=== PATIENT | male | born 1945 | race Caucasian/White ===

== ENCOUNTER 2018-02-13 10:59 | Observation (INO) | payer MEDICARE ==
--- NOTE | 2018-02-13 13:00 | PCM.HP.ADD ---
Addendum to History & Physical - History & Physical Addendum Addendum to History & Physical: This certifies that the History & Physical in the electronic chart reflects the current health status of the patient. If there are changes in the H&P these changes/exceptions are listed as follows.
[2018-02-13 13:12] LABS: BASOPHIL % 0.3 % (0.0-0.4); Basophil (Absolute #) 0.03 (0-0.4); Eosinophil % 1.8 % (0.00-5.0); Eosinophil (Absolute #) 0.16 (0-0.5); Granulocyte Absolute (ANC) 6.95 (1.4-6.9); Granulocytes % 78.3 % (36.0-66.0); Hematocrit 45.2 % (42-50); Hemoglobin 15.6 gm/dl (12.5-18.0); Mean Cell Volume 91.1 fl (78-100); Mean Corpuscular Hemoglobin 31.5 pg (26-32); Mean Corpuscular Hgb Concent. 34.5 g/dl (32-36); Mean Platelet Volume 9.5 fl (6-9.5); Monocyte (Absolute #) 0.94 (0.0-1.3); Monocytes % 10.6 % (0.0-12.0); Platelet Count 177 K/mm3 (150-450); Red Blood Count 4.96 M/mm3 (4.1-5.6); White Blood Count 8.9 K/mm3 (4.0-10.5)
[2018-02-13 13:32] LABS: ALBUMIN 4.4 g/dL (3.5-5.0); ALKALINE PHOSPHATASE 71 U/L (38-126); ANION GAP 15.3 MEQ/L (5-15); BLOOD UREA NITROGEN 14 mg/dL (9-20); CHLORIDE 101 mmol/L (98-107); Calcium 9.6 mg/dL (8.4-10.2); Carbon Dioxide 29 mmol/L (22-30); Creatinine 1 0.68 mg/dL (0.66-1.25); Glucose 230 mg/dL (74-106); Potassium 4.1 mmol/L (3.5-5.1); SGOT/AST 19 U/L (17-59); SGPT/ALT 11 U/L (0-50); SODIUM 140 mmol/L (137-145)
--- NOTE | 2018-02-13 13:43 | XRAY ---
Indication: Cough. Pneumonia. Comparison: May 19, 2015. PA/lateral chest hyperinflated again with azygous lobe, left base pleural thickening/scarring, and a few calcified granulomas. Heart is not enlarged with interval CABG surgery. Bony thorax intact again with mild osteopenia and degenerative changes. Impression: Nonacute hyperinflated chest with chronic features.
[2018-02-13] MEDS: ROCEPHIN 1 Gm-D5w 50 ml Bag** 1 G/50 ML IVPB IV SCH (14:30)
[2018-02-13] MEDS: Zithromax 500 MG/ 250 ML NaCl Premix 500 MG/250 ML IVPB IV SCH (15:12)
[2018-02-13] MEDS ORDERED: PROVENTIL 2.5 MG/3 ML NEB IH PRN (15:48)
[2018-02-13] MEDS ORDERED: Nitrostat 0.4 MG Tablet SL PRN (16:13)
[2018-02-13] MEDS ORDERED: Ventolin Hfa MDI IH PRN (16:13)
[2018-02-13] MEDS ORDERED: Glucotrol 10 MG PO SCH (16:30)
[2018-02-13] MEDS ORDERED: ECOTRIN 81 MG PO SCH (16:30)
[2018-02-13] MEDS ORDERED: PROVENTIL COMMON CANISTER IH PRN (16:42)
[2018-02-13] MEDS ORDERED: MEDICATION INTERVENTION MC SCH (17:00)
[2018-02-13] MEDS ORDERED: MEDICATION INTERVENTION PO SCH (17:00)
[2018-02-13] MEDS ORDERED: Glucophage XR 500 MG PO SCH (17:00)
[2018-02-13] MEDS: ECOTRIN 81 MG PO SCH (17:33)
[2018-02-13] MEDS: ceLEXa 20 MG PO SCH (17:33)
[2018-02-13] MEDS: VITA-BEE WITH C PO SCH (17:34)
[2018-02-13] MEDS: Zestril 5 MG PO SCH (17:34)
[2018-02-13] MEDS: ZOCOR 20MG PO SCH (17:34)
[2018-02-13] MEDS: Lopressor 25MG Tab PO SCH (21:41)
[2018-02-13] MEDS ORDERED: INSULIN DEGLUDEC 20 UNIT SQ SCH (22:00)
[2018-02-13] MEDS ORDERED: Lantus Insulin SQ SCH (22:00)
[2018-02-13] MEDS ORDERED: Lopressor 25MG Tab PO SCH (22:00)
[2018-02-14] MEDS ORDERED: TYLENOL 325 MG PO PRN (00:11)
[2018-02-14] MEDS ORDERED: Glucotrol 5 MG PO SCH (07:30)
[2018-02-14] MEDS ORDERED: Glucotrol 10 MG PO SCH ×2 (07:30→10:00)
[2018-02-14 08:27] VITALS: O2SAT 96
--- NOTE | 2018-02-14 09:27 | PCM.DS ---
Discharge Summary Date of Admission: 02/13/18 11:15 Admitting Physician: MARIBEL YODER Primary Care Provider: MARIBEL YODER Allergies Allergies No Known Drug Allergies Allergy (Verified 02/13/18 11:36) Hospital Summary - Hospital Course Hospital Course: Chief Complaint Diagnosis Pneumonia Allergies Allergy/AdvReac Type Severity Reaction Status Date / Time No Known Drug Allergies Allergy Verified 02/13/18 11:36 Vital Signs (Last 24 hours) Temp Pulse Resp BP Pulse Ox 02/14/18 08:26 96 02/14/18 08:00 98.8 F 69 20 147/68 91 L 02/14/18 04:00 99.6 F 79 18 134/61 92 L 02/14/18 00:00 101.4 F 93 H 18 126/60 90 L 02/13/18 23:31 90 24 91 L 02/13/18 21:42 92 H 24 93 L 02/13/18 19:51 99.7 F 88 28 H 155/74 94 L 02/13/18 16:00 18 02/13/18 15:54 98.3 F 90 18 143/63 94 L 02/13/18 15:41 90 18 94 L 02/13/18 11:38 99.6 F 98 H 16 136/67 95 Home Medications Medication Instructions Recorded Confirmed Last Taken Type Ascorbic Acid [Vitamin C] 50 mg PO DAILY 02/13/18 02/13/18 02/12/18 History Citalopram Hydrobromide 40 mg PO DAILY 02/13/18 02/13/18 02/12/18 History [Citalopram HBr] Dulaglutide [Trulicity] 0.75 mg SQ WEEKLY 02/13/18 02/13/18 02/11/18 History Glipizide 10 mg [Glucotrol 10 10 mg PO DAILY 02/13/18 02/13/18 02/12/18 History MG] Insulin Degludec [Tresiba 20 units SQ QHS 02/13/18 02/13/18 02/12/18 History Flextouch U-100] Lisinopril [Zestril] 5 mg PO DAILY 02/13/18 02/13/18 02/12/18 History Lovastatin 40 mg PO DAILY 02/13/18 02/13/18 02/12/18 History Metformin HCl Xr 500 mg 500 mg PO DAILY 02/13/18 02/13/18 02/12/18 History [Glucophage XR 500 MG] Metoprolol Tartrate 25 mg 25 mg PO BID 02/13/18 02/13/18 02/12/18 History [Lopressor 25MG Tab] Current Medications Generic Name Dose Route Start Last Admin Trade Name Freq PRN Reason Stop Dose Admin Acetaminophen 650 mg 02/14/18 00:11 02/14/18 00:14 Tylenol 325 Mg PO 03/16/18 00:10 650 mg Q4H PRN PRN Administration PAIN AND/OR FEVER Albuterol Sulfate 2.5 mg 02/13/18 15:48 02/13/18 23:31 Proventil 2.5 Mg/3 Ml Neb IH 03/15/18 15:47 2.5 mg Q4H PRN PRN Administration SHORTNESS OF BREATH/WHEEZING Albuterol Sulfate 2 puff 02/13/18 16:42 Proventil Common Canister IH 03/15/18 16:41 QID PRN PRN SHORTNESS OF BREATH Aspirin 81 mg 02/13/18 17:00 02/13/18 17:33 Ecotrin 81 Mg PO 03/15/18 16:59 81 mg DAILY TREVER Administration Citalopram Hydrobromide 40 mg 02/13/18 17:00 02/13/18 17:33 Celexa 20 Mg PO 03/15/18 16:59 40 mg DAILY TREVER Administration Glipizide 10 mg 02/14/18 07:30 02/14/18 07:41 Glucotrol 5 Mg PO 03/16/18 07:29 10 mg QDAC TREVER Administration Ceftriaxone Sodium/Dextrose 1 g in 50 mls @ 100 mls/hr 02/13/18 14:00 14:30 Rocephin 1 Gm-D5w 50 Ml Bag IV 03/15/18 13:59 100 mls/hr Q24H10 TREVER Administration Azithromycin 500 mg in 250 mls @ 250 mls/hr 02/13/18 14:00 02/13/18 15:12 Zithromax 500 Mg/ 250 Ml Nacl Premix IV 03/15/18 13:59 250 mls/hr DAILY TREVER Administration Insulin Glargine 20 unit 02/13/18 22:00 02/13/18 21:41 Lantus Insulin SQ 03/15/18 21:59 20 unit HS TREVER Administration Lisinopril 5 mg 02/13/18 17:00 02/13/18 17:34 Zestril 5 Mg PO 03/15/18 16:59 5 mg DAILY TREVER Administration Metformin HCl 500 mg 02/13/18 17:00 02/13/18 17:33 Glucophage Xr 500 Mg PO 03/15/18 16:59 500 mg DINNER TREVER Administration Metoprolol Tartrate 25 mg 02/13/18 22:00 02/13/18 21:41 Lopressor 25mg Tab PO 03/15/18 21:59 25 mg BID TREVER Administration Multivitamins 1 tab 02/13/18 17:00 02/13/18 17:34 Rosa Maria-Bee With C PO 03/15/18 16:59 1 tab DAILY TREVER Administration Nitroglycerin 0.4 mg 02/13/18 16:13 Nitrostat 0.4 Mg Tablet SL 03/15/18 16:12 UD PRN CHEST PAIN Simvastatin 20 mg 02/13/18 17:00 02/13/18 17:34 Zocor 20mg PO 03/15/18 16:59 20 mg DAILY TREVER Administration Intake & Output (Last 24 hours) 02/11/18 02/12/18 02/13/18 02/14/18 11:59 11:59 11:59 11:59 Intake Total 730 Output Total 1650 Balance -920 Weight 89.5 kg Microbiology Results (Last 24 hours) 02/13/18 13:20 Blood Blood Culture Gram Stain - Pending 02/13/18 13:20 Blood Blood Culture - Pending 02/13/18 13:06 Blood Blood Culture Gram Stain - Pending 02/13/18 13:06 Blood Blood Culture - Pending Laboratory Results (Last 24 hours) 02/13/18 02/13/18 02/13/18 13:06 13:06 12:57 WBC 8.9 RBC 4.96 Hgb 15.6 Hct 45.2 MCV 91.1 MCH 31.5 MCHC 34.5 RDW 12.0 Plt Count 177 MPV 9.5 Gran % 78.3 H Eos # (Auto) 0.16 Absolute Lymphs (auto) 0.80 L Absolute Monos (auto) 0.94 Lymphocytes % 9.0 L Monocytes % 10.6 Eosinophils % 1.8 Basophils % 0.3 Absolute Granulocytes 6.95 H Basophils # 0.03 Sodium 140 Potassium 4.1 Chloride 101 Carbon Dioxide 29 Anion Gap 15.3 H BUN 14 Creatinine 0.68 Estimated GFR > 60.0 Glucose 230 H Calcium 9.6 Total Bilirubin 0.80 AST 19 ALT 11 Alkaline Phosphatase 71 Troponin I < 0.012 Serum Total Protein 7.0 Albumin 4.4 Orders (Last 24 hours) Category Date Time Status Up Ad Jaquelin Activity 02/13/18 12:57 Active Up Ad Jaquelin TOLERATED Activity 02/13/18 12:57 Active ACCUCHECK [Accucheck] ACHS Care 02/13/18 20:16 Active IV Insertion ROUTINE Care 02/13/18 12:57 Completed Implement Pneumonia Pathway ROUTINE Care 02/13/18 12:[address] in Observation Care 02/13/18 12:57 Active 2000 Calorie ADA Diet 02/13/18 Dinner Active Nutritional Admission Screen Diet 02/13/18 13:08 Active CHEST 2 VIEWS (PA AND LAT) Stat Exams 02/13/18 12:57 Completed BLOOD CULTURE Stat Lab 02/13/18 13:20 Received CBC W DIFF Stat Lab 02/13/18 13:06 Completed CMP Routine Lab 02/13/18 12:57 Completed TROPONIN Stat Lab 02/13/18 13:06 Completed Acetaminophen 325 mg [Tylenol 325 mg] Med 02/14/18 00:11 Active 650 mg PO Q4H PRN PRN Albuterol 2.5 mg/3 ml Neb [Proventil 2.5 mg/3 ml Neb Med 02/13/18 15:48 Active ] 2.5 mg IH Q4H PRN PRN Albuterol Common Canister [Proventil Common Canister Med 02/13/18 16:42 Active ] 2 puff IH QID PRN PRN Aspirin EC 81 mg [Ecotrin 81 mg] Med 02/13/18 17:00 Active 81 mg PO DAILY Azithromycin 500 mg/250 ml [Zithromax 500 MG/ 250 ML Med 02/13/18 14:00 Active NaCl Premix] 500 mg in 250 ml IV DAILY Ceftriaxone 1 GM/50 ML PREMIX* [ROCEPHIN 1 Gm-D5w 50 ml Med 02/13/18 14:00 Active Bag] 1 g in 50 ml IV Q24H10 Citalopram Hydrobromide 20 mg* [ceLEXa 20 MG] Med 02/13/18 17:00 Active 40 mg PO DAILY Glipizide 5 mg [Glucotrol 5 MG] Med 02/14/18 07:30 Active 10 mg PO QDAC Insulin Glargine [Lantus Insulin] Med 02/13/18 22:00 Active 20 unit SQ HS Lisinopril 5 mg [Zestril 5 MG] Med 02/13/18 17:00 Active 5 mg PO DAILY Medication Intervention Med 02/13/18 17:00 Active 1 each MC .RN TO CHECK ON Medication Intervention Med 02/13/18 17:00 Active 1 each PO .RN TO CHECK ON Metformin HCl Xr 500 mg [Glucophage XR 500 MG] Med 02/13/18 17:00 Active 500 mg PO DINNER Metoprolol Tartrate 25 mg [Lopressor 25MG Tab] Med 02/13/18 22:00 Active 25 mg PO BID Nitroglycerin 0.4 mg Tablet [Nitrostat 0.4 MG Tablet Med 02/13/18 16:13 Active ] 0.4 mg SL UD PRN Simvastatin 20Mg [Zocor 20Mg] Med 02/13/18 17:00 Active 20 mg PO DAILY Vitamin B Comp W-C [Rosa Maria-Bee with C] Med 02/13/18 17:00 Active 1 tab PO DAILY EKG ROUTINE RT 02/13/18 12:57 Completed RT Screen per Nursing Assess ONCE RT 02/13/18 13:08 Completed Respiratory Nebulizer UD RT 02/13/18 15:49 Active Respiratory Therapy Consult ROUTINE RT 02/13/18 12:57 Completed Patient Care Notes (Last 24 hours) 02/13/18 23:29 Nursing Note by Philomena Mondragon Patient c/o short of breath. O2 sat 94% RT Bijan made aware and assessing patient. Initialized on 02/13/18 23:29 - END OF NOTE - Vitals & Intake/Output Vital Signs: Vital Signs Temperature 98.8 F 02/14/18 08:00 Pulse Rate 69 02/14/18 08:00 Respiratory Rate 20 02/14/18 08:00 Blood Pressure 147/68 02/14/18 08:00 O2 Sat by Pulse Oximetry 96 02/14/18 08:26 Oxygen-Last Documented O2 Percentage 2 Liters = 28% Intake & Output: Intake & Output 02/11/18 02/12/18 02/13/18 02/14/18 11:59 11:59 11:59 11:59 Intake Total 730 Output Total 1650 Balance -920 Weight 89.5 kg - Lab Result Diagrams: 02/13/18 13:06 02/13/18 12:57 Lab Results-Last 24 Hrs: Accuchecks Date 02/13/18 Accucheck Value: 216 Accucheck Value: 225 Lab Results-Last 24 Hours 02/13/18 02/13/18 02/13/18 Range/Units 12:57 13:06 13:06 WBC 8.9 (4.0-10.5) K/mm3 RBC 4.96 (4.1-5.6) M/mm3 Hgb 15.6 (12.5-18.0) gm/dl Hct 45.2 (42-50) % MCV 91.1 (78-100) fl MCH 31.5 (26-32) pg MCHC 34.5 (32-36) g/dl RDW 12.0 (11.5-14.0) % Plt Count 177 (150-450) K/mm3 MPV 9.5 (6-9.5) fl Gran % 78.3 H (36.0-66.0) % Eos # (Auto) 0.16 (0-0.5) Absolute Lymphs (auto) 0.80 L (1.0-4.6) Absolute Monos (auto) 0.94 (0.0-1.3) Lymphocytes % 9.0 L (24.0-44.0) % Monocytes % 10.6 (0.0-12.0) % Eosinophils % 1.8 (0.00-5.0) % Basophils % 0.3 (0.0-0.4) % Absolute Granulocytes 6.95 H (1.4-6.9) Basophils # 0.03 (0-0.4) Sodium 140 (137-145) mmol/L Potassium 4.1 (3.5-5.1) mmol/L Chloride 101 (98-107) mmol/L Carbon Dioxide 29 (22-30) mmol/L Anion Gap 15.3 H (5-15) MEQ/L BUN 14 (9-20) mg/dL Creatinine 0.68 (0.66-1.25) mg/dL Estimated GFR > 60.0 ML/MIN Glucose 230 H (74-106) mg/dL Calcium 9.6 (8.4-10.2) mg/dL Total Bilirubin 0.80 (0.2-1.3) mg/dL AST 19 (17-59) U/L ALT 11 (0-50) U/L Alkaline Phosphatase 71 (38-126) U/L Troponin I < 0.012 (0.000-0.034) ng/mL Serum Total Protein 7.0 (6.3-8.2) g/dL Albumin 4.4 (3.5-5.0) g/dL Micro Results-Entire Visit: Accuchecks Date 02/13/18 Accucheck Value: 216 Accucheck Value: 225 - Radiology Exams Ordered Rad Exams-Entire Visit: Radiology Procedures Category Date Time Status CHEST 2 VIEWS (PA AND LAT) Stat Exams 02/13/18 12:57 Completed - Procedures and Test Procedures and Tests throughout Hospitalization: Therapy Orders & Screens 02/13/18 12:57 EKG ROUTINE Comment: Respiratory Therapy Consult ROUTINE Comment: Reason For Exam: Diagnosis: Pneumonia 02/13/18 13:08 RT Screen per Nursing Assess ONCE Comment: Protocol Order Physician Instructions: Greater than 3 points order RT Admission Screen Reason For Exam: Triggered on Admission Diagnosis: Pneumonia Diagnosis: Pneumonia Pneumonia: Yes Home O2: No Asthma: No CHF: No Home CPAP/BIPAP: No Home Nebs/MDI: Yes Total Points: 8 02/13/18 15:49 Respiratory Nebulizer UD Comment: Diagnosis: Pneumonia Discharge Exam General Appearance: no apparent distress, alert Neurologic Exam: alert, oriented x 3, cooperative, normal mood/affect, nml cerebellar function, sensation nml, No motor deficits Skin Exam: normal color, warm, dry Eye Exam: PERRL, EOMI, eyes nml inspection Ears, Nose, Throat Exam: normal ENT inspection, pharynx normal, moist mucous membranes Neck Exam: normal inspection, non-tender, supple, full range of motion Respiratory Exam: normal breath sounds, lungs clear, No respiratory distress Cardiovascular Exam: regular rate/rhythm, normal heart sounds Gastrointestinal/Abdomen Exam: soft, No tenderness, No mass Extremity Exam: normal inspection, normal range of motion Back Exam: normal inspection, normal range of motion, No CVA tenderness, No vertebral tenderness Male Genitalia Exam: deferred Rectal Exam: deferred Final Diagnosis/Problem List - Final Discharge Diagnosis/Problem (1) Bronchitis Current Visit: Yes Status: Acute (2) Type 2 diabetes mellitus Current Visit: Yes Status: Chronic - Discharge Discharge Date: 02/14/18 Disposition: Home, Self-Care Condition: Stable Prescriptions: New Cephalexin Mh 500 mg [Keflex 500 mg] 500 mg PO QID #30 capsule No Action Vitamin B Complex & Vit C No.3 [B Complex with Vitamin C] 1 each PO DAILY Aspirin 81 mg PO DAILY Albuterol Sulfate [Proair Hfa] 2 puffs IH QID PRN PRN Reason: Shortness Of Breath Nitroglycerin 0.4 mg Tablet [Nitrostat 0.4 MG Tablet] 0.4 mg SL UD PRN PRN Reason: Chest Pain Glipizide 10 mg [Glucotrol 10 MG] 10 mg PO DAILY Ascorbic Acid [Vitamin C] 50 mg PO DAILY Lovastatin 40 mg PO DAILY Citalopram Hydrobromide [Citalopram HBr] 40 mg PO DAILY Metoprolol Tartrate 25 mg [Lopressor 25MG Tab] 25 mg PO BID Lisinopril [Zestril] 5 mg PO DAILY Metformin HCl Xr 500 mg [Glucophage XR 500 MG] 500 mg PO DAILY Insulin Degludec [Tresiba Flextouch U-100] 20 units SQ QHS Dulaglutide [Trulicity] 0.75 mg SQ WEEKLY Follow up with: MARIBEL YODER MD [Primary Care Provider] - 1 Week
[2018-02-14] MEDS: ROCEPHIN 1 Gm-D5w 50 ml Bag** 1 G/50 ML IVPB IV SCH (09:32)
[2018-02-14] MEDS: Zithromax 500 MG/ 250 ML NaCl Premix 500 MG/250 ML IVPB IV SCH (09:32)
[2018-02-14] MEDS: Zestril 5 MG PO SCH (09:33)
[2018-02-14] MEDS: Lopressor 25MG Tab PO SCH (09:33)
[2018-02-14] MEDS: ECOTRIN 81 MG PO SCH (09:33)
[2018-02-14] MEDS: ceLEXa 20 MG PO SCH (09:33)
[2018-02-14] MEDS: VITA-BEE WITH C PO SCH (09:34)
[2018-02-14] MEDS: ZOCOR 20MG PO SCH (09:34)
[2018-02-14] MEDS ORDERED: NON-FORMULARY ITEM (Lovastatin [Lovastatin] 40 MG) PO SCH (10:00)
[2018-02-14] MEDS ORDERED: ASCORBIC ACID PO SCH (10:00)
[2018-02-14] MEDS ORDERED: VITAMIN C PO SCH (10:00)
[2018-02-14] MEDS ORDERED: Glucophage XR 500 MG PO SCH (10:00)
[2018-02-14] MEDS ORDERED: VIT C NO 3 PO SCH (10:00)
[2018-02-14] MEDS ORDERED: VITAMIN B COMPLEX PO SCH (10:00)
[2018-02-14] MEDS ORDERED: NON-FORMULARY ITEM (Aspirin [Aspirin] 81 MG) PO SCH (10:00)
[2018-02-14] MEDS ORDERED: NON-FORMULARY ITEM (Citalopram Hydrobromide [Citalopram Hbr] 40 MG) PO SCH (10:00)
[2018-02-14] MEDS ORDERED: Zestril 5 MG PO SCH (10:00)
[2018-02-14 11:30] VITALS: BP 135/65; PULSE 78
== END 2018-02-14 12:00 | disposition home or self-care (01) ==
LOC: MED SURG 11:15
PROVIDERS: ADMIT General Practice; ATTEND General Practice
DX: J40 Bronchitis, not specified as acute or chronic (principal); E11.9 Type 2 diabetes mellitus without complications; Z79.4 Long term (current) use of insulin; Z79.899 Other long term (current) drug therapy; J44.9 Chronic obstructive pulmonary disease, unspecified; I10 Essential (primary) hypertension; F41.8 Other specified anxiety disorders; K21.9 Gastro-esophageal reflux disease without esophagitis
CPT/HCPCS: 36415; 71046; 80053; 84484; 85025; 87040; 93005; 94640; G0378; J7609; J0456; J0696; A9270-GY

== ENCOUNTER 2019-10-31 13:20 | Emergency (ER) | payer MEDICARE ==
[2019-10-31] MEDS ORDERED: BABY ASPIRIN 81 MG CHEW PO ONE (14:05)
[2019-10-31] MEDS ORDERED: Sodium Chloride 0.9% 1000 ML 1,000 ML IV STA (14:05)
--- NOTE | 2019-10-31 14:33 | XRAY ---
Indication: Flulike symptoms. Pneumonia. Comparison: February 13, 2018. AP/lateral chest unchanged again hyperinflated with azygous lobe, left base pleural thickening/scarring, and a few scattered calcified granulomas. No focal infiltrate, consolidation, or large effusion. Heart is not enlarged again with CABG surgery. Bony thorax intact again with mild osteopenia and degenerative changes. Impression: Stable nonacute hyperinflated chest with chronic features.
--- NOTE | 2019-10-31 14:36 | ERPHSYRPT ---
- History of Present Illness Time Seen by Provider: 10/31/19 13:56 Patient Subjective Stated Complaint: Cough Triage Nursing Assessment: Patient brought back to ED via w/c and transferred to bed per self. Patient A+O X3. Patient's skin pink, warm and dry. Patient complains of fever, cough and congestion for 3 weeks. Patient states he has an intermittent productive cough producing yellow/green sputum. Patient's lungs clear a/p swetha. Patient denies pain or discomfort. Physician History: location: generalized malaise Quality: cough, cold, congestion, diarrhea Radiation: none Severity: moderate Duration: 3 weeks Timing: gradual Modifying factors/associated signs and symptoms: has not seen PCP, here with who is a smoker Allergies/Adverse Reactions: No Known Drug Allergies Allergy (Verified 10/31/19 13:51) Home Medications: Albuterol Sulfate [Proair Hfa] 2 puffs IH QID PRN 01/22/14 [History] Aspirin 81 mg PO DAILY 01/22/14 [History] Vitamin B Complex & Vit C No.3 [B Complex with Vitamin C] 1 each PO DAILY [History] Nitroglycerin 0.4 mg Tablet [Nitrostat 0.4 MG Tablet] 0.4 mg SL UD PRN 09/22 [History] Ascorbic Acid [Vitamin C] 50 mg PO DAILY 02/13/18 [History] Citalopram Hydrobromide [Citalopram HBr] 40 mg PO DAILY 02/13/18 [History] Dulaglutide [Trulicity] 0.75 mg SQ WEEKLY 02/13/18 [History] Glipizide 10 mg [Glucotrol 10 MG] 10 mg PO DAILY 02/13/18 [History] Insulin Degludec [Tresiba Flextouch U-100] 20 units SQ QHS 02/13/18 [History] Lovastatin 40 mg PO DAILY 02/13/18 [History] Metformin HCl Xr 500 mg [Glucophage XR 500 MG] 500 mg PO DAILY 02/13/18 [ History] Metoprolol Tartrate 25 mg [Lopressor 25MG Tab] 25 mg PO BID 02/13/18 [ History] lisinopriL [Zestril] 5 mg PO DAILY 02/13/18 [History] Hx Tetanus, Diphtheria Vaccination/Date Given: No Hx Influenza Vaccination/Date Given: Yes Hx Pneumococcal Vaccination/Date Given: No Immunizations Up to Date: No - Review of Systems Constitutional: No Fever, No Chills Eyes: No Symptoms Ears, Nose, & Throat: No Symptoms, Nose Congestion Respiratory: Cough, Wheezing, No Dyspnea Cardiac: No Chest Pain, No Edema, No Syncope Abdominal/Gastrointestinal: No Abdominal Pain, No Nausea, No Vomiting, No Diarrhea Genitourinary Symptoms: No Dysuria Musculoskeletal: No Back Pain, No Neck Pain Skin: No Rash Neurological: No Dizziness, No Focal Weakness, No Sensory Changes Psychological: No Symptoms Endocrine: No Symptoms All Other Systems: Reviewed and Negative - Past Medical History Pertinent Past Medical History: Yes Neurological History: No Pertinent History ENT History: Cataracts Cardiac History: High Cholesterol, Hypertension Respiratory History: Asthma Endocrine Medical History: Diabetes Type II Musculoskeletal History: Arthritis GI Medical History: GERD, Gallbladder Disease History: No Pertinent History Psycho-Social History: Anxiety, Depression, Panic Disorder Male Reproductive Disorders: No Pertinent History - Past Surgical History Past Surgical History: Yes Neuro Surgical History: No Pertinent History Cardiac: Cardiac Catheterization, Cardiac Stent Respiratory: No Pertinent History Gastrointestinal: Appendectomy, Cholecystectomy, Hernia Repair Genitourinary: No Pertinent History Musculoskeletal: No Pertinent History Male Surgical History: No Pertinent History Other Surgical History: cataract removed from both eye - Social History Smoking Status: Never smoker Exposure to second hand smoke: No Alcohol Use: None Drug Use: none Patient Lives Alone: No Significant Family History: heart disease, diabetes, hypertension - Nursing Vital Signs Nursing Vital Signs: Initial Vital Signs Temperature 98.9 F 10/31/19 13:52 Pulse Rate 95 H 10/31/19 13:52 Respiratory Rate 18 10/31/19 13:52 Blood Pressure 152/95 10/31/19 13:52 O2 Sat by Pulse Oximetry 97 10/31/19 13:52 Pain Scale Pain Intensity 0 - Physical Exam General Appearance: no apparent distress, alert Eye Exam: PERRL/EOMI, eyes nml inspection Ears, Nose, Throat Exam: normal ENT inspection, TMs normal, pharynx normal, moist mucous membranes Neck Exam: normal inspection, non-tender, supple, full range of motion Respiratory Exam: normal breath sounds, wheezing, No lungs clear, No respiratory distress Cardiovascular Exam: regular rate/rhythm, normal heart sounds Gastrointestinal/Abdomen Exam: soft, No tenderness Back Exam: normal inspection, No CVA tenderness, No vertebral tenderness Extremity Exam: normal inspection, normal range of motion Neurologic Exam: alert, oriented x 3, cooperative, normal mood/affect, sensation nml, No motor deficits Skin Exam: normal color, warm, dry, No rash Lymphatic Exam: No adenopathy SpO2: 97 Ordered Tests: Active Orders 24 hr Category Date Time Status Filling Station Laborer STAT Care 10/31/19 14:05 Active EKG-ER Only STAT Care 10/31/19 14:05 Active IV Insertion STAT Care 10/31/19 14:05 Active Pulse Oximetry (ED) STAT Care 10/31/19 14:05 Active CHEST 2 VIEWS (PA AND LAT) Stat Exams 10/31/19 14:05 Completed CBC W DIFF Stat Lab 10/31/19 15:00 Completed CMP Stat Lab 10/31/19 15:00 Completed TROPONIN Q3H Lab 10/31/19 15:00 Completed TROPONIN Q3H Lab 10/31/19 17:15 Ordered TROPONIN Q3H Lab 10/31/19 20:15 Ordered TROPONIN Q3H Lab 10/31/19 23:15 Ordered TROPONIN Q3H Lab 11/01/19 02:15 Ordered Peak Expiratory Flow Rate ONCE RT 10/31/19 16:01 Active Respiratory Therapy Assessment DAILY RT 10/31/19 16:02 Active Medication Summary Discontinued Medications Generic Name Dose Route Start Last Admin Trade Name Freq PRN Reason Stop Dose Admin Albuterol/Ipratropium 3 ml 10/31/19 15:40 10/31/19 15:58 Duoneb 0.5-3 Mg/3 Ml Neb IH 10/31/19 15:41 3 ml STAT ONE Administration Albuterol/Ipratropium Confirm 10/31/19 15:40 Duoneb 0.5-3 Mg/3 Ml Neb Administered 10/31/19 15:41 Dose 3 ml IH .STK-MED ONE Aspirin 324 mg 10/31/19 14:05 10/31/19 15:06 Baby Aspirin 81 Mg Chew PO 10/31/19 14:06 324 mg STAT ONE Administration Sodium Chloride 1,000 mls @ 999 mls/hr 10/31/19 14:05 10/31/19 15:09 Sodium Chloride 0.9% 1000 Ml IV 10/31/19 15:05 999 mls/hr .Q1H1M STA Administration Lab/Rad Data: Laboratory Result Diagrams 10/31/19 15:00 10/31/19 15:00 Laboratory Results 10/31/19 10/31/19 10/31/19 Range/Units 15:00 15:00 15:00 WBC 9.6 (4.0-10.5) K/mm3 RBC 5.09 (4.1-5.6) M/mm3 Hgb 16.1 (12.5-18.0) gm/dl Hct 45.8 (42-50) % MCV 90.0 (78-100) fl MCH 31.6 (26-32) pg MCHC 35.2 (32-36) g/dl RDW 12.6 (11.5-14.0) % Plt Count 268 (150-450) K/mm3 MPV 9.3 (7.5-11.0) fl Gran % 70.1 H (36.0-66.0) % Eos # (Auto) 0.32 (0-0.5) Absolute Lymphs (auto) 1.89 (1.0-4.6) Absolute Monos (auto) 0.61 (0.0-1.3) Lymphocytes % 19.8 L (24.0-44.0) % Monocytes % 6.4 (0.0-12.0) % Eosinophils % 3.4 (0.00-5.0) % Basophils % 0.3 (0.0-0.4) % Absolute Granulocytes 6.70 (1.4-6.9) Basophils # 0.03 (0-0.4) Sodium 135 L (137-145) mmol/L Potassium 5.0 (3.5-5.1) mmol/L Chloride 98 (98-107) mmol/L Carbon Dioxide 23 (22-30) mmol/L Anion Gap 19.2 H (5-15) MEQ/L BUN 21 H (9-20) mg/dL Creatinine 0.74 (0.66-1.25) mg/dL Estimated GFR > 60.0 ML/MIN Glucose 401 H (74-106) mg/dL Calcium 9.6 (8.4-10.2) mg/dL Total Bilirubin 1.10 (0.2-1.3) mg/dL AST 52 (17-59) U/L ALT 18 (0-50) U/L Alkaline Phosphatase 87 (38-126) U/L Troponin I < 0.012 (0.000-0.034) ng/mL Serum Total Protein 8.3 H (6.3-8.2) g/dL Albumin 4.5 (3.5-5.0) g/dL Influenza Type A Ag (NEGATIVE) Influenza Type B Ag (NEGATIVE) RSV (PCR) (Negative) 10/31/19 Range/Units 14:50 WBC (4.0-10.5) K/mm3 RBC (4.1-5.6) M/mm3 Hgb (12.5-18.0) gm/dl Hct (42-50) % MCV (78-100) fl MCH (26-32) pg MCHC (32-36) g/dl RDW (11.5-14.0) % Plt Count (150-450) K/mm3 MPV (7.5-11.0) fl Gran % (36.0-66.0) % Eos # (Auto) (0-0.5) Absolute Lymphs (auto) (1.0-4.6) Absolute Monos (auto) (0.0-1.3) Lymphocytes % (24.0-44.0) % Monocytes % (0.0-12.0) % Eosinophils % (0.00-5.0) % Basophils % (0.0-0.4) % Absolute Granulocytes (1.4-6.9) Basophils # (0-0.4) Sodium (137-145) mmol/L Potassium (3.5-5.1) mmol/L Chloride (98-107) mmol/L Carbon Dioxide (22-30) mmol/L Anion Gap (5-15) MEQ/L BUN (9-20) mg/dL Creatinine (0.66-1.25) mg/dL Estimated GFR ML/MIN Glucose (74-106) mg/dL Calcium (8.4-10.2) mg/dL Total Bilirubin (0.2-1.3) mg/dL AST (17-59) U/L ALT (0-50) U/L Alkaline Phosphatase (38-126) U/L Troponin I (0.000-0.034) ng/mL Serum Total Protein (6.3-8.2) g/dL Albumin (3.5-5.0) g/dL Influenza Type A Ag NEGATIVE (NEGATIVE) Influenza Type B Ag NEGATIVE (NEGATIVE) RSV (PCR) NEGATIVE (Negative) - Progress Progress: improved Air Movement: good Progress Note: 10/31/19 14:35 - We'll obtain basic labs, fluids, EKG, troponin, chest x-ray - I feel comfortable with one time negative troponin given symptoms have improved and started greater then 6 hours ago. - EKG shows no ST changes - my read. See full read below. - O2 saturations consistently greater than 95%. - CXR shows no pneumonia, pneumothorax - my read - no other obvious lab abnormalities - steroids, breathing tx, aspirin 10/31/19 16:21 Patient feeling improved with medications here. Patient does appear dehydrated on exam with hyperglycemia and anion gap. He was given fluids and was taking medication PO. He felt overall improved. Therefore, we will discharge patient home at this point in time. He will need close follow up with PCP and reexam in 24-48 hours. He states his understanding and they will return here for new or changing symptoms. Counseled pt/family regarding: lab results, diagnosis, need for follow-up, rad results - Departure Departure Disposition: Home Clinical Impression: Bronchitis Condition: Stable Critical Care Time: No Referrals: MARIBEL YODER MD [Primary Care Provider] - Instructions: Cough, Adult (DC) Additional Instructions: follow up with PCP for lung reexam and repeat glucose check in 24-48 hours. Return here for any new or changing symptoms.
[2019-10-31 15:08] LABS: BASOPHIL % 0.3 % (0.0-0.4); Basophil (Absolute #) 0.03 (0-0.4); Eosinophil % 3.4 % (0.00-5.0); Eosinophil (Absolute #) 0.32 (0-0.5); Hematocrit 45.8 % (42-50); Hemoglobin 16.1 gm/dl (12.5-18.0); Lymphocyte (Absolute #) 1.89 (1.0-4.6); Lymphocytes % 19.8 % (24.0-44.0); Mean Corpuscular Hemoglobin 31.6 pg (26-32); Mean Corpuscular Hgb Concent. 35.2 g/dl (32-36); Mean Platelet Volume 9.3 fl (7.5-11.0); Monocyte (Absolute #) 0.61 (0.0-1.3); Monocytes % 6.4 % (0.0-12.0); Neutrophil % 70.1 % (36.0-66.0); Platelet Count 268 K/mm3 (150-450); Red Blood Count 5.09 M/mm3 (4.1-5.6); Red Cell Distribution Width 12.6 % (11.5-14.0); White Blood Count 9.6 K/mm3 (4.0-10.5)
[2019-10-31 15:25] LABS: INFLUENZA A NEGATIVE (NEGATIVE); INFLUENZA B NEGATIVE (NEGATIVE); RESPIRATORY SYNCTIAL VIRUS NEGATIVE (Negative)
[2019-10-31 15:30] LABS: ALBUMIN 4.5 g/dL (3.5-5.0); ALKALINE PHOSPHATASE 87 U/L (38-126); ANION GAP 19.2 MEQ/L (5-15); BLOOD UREA NITROGEN 21 mg/dL (9-20); CHLORIDE 98 mmol/L (98-107); Calcium 9.6 mg/dL (8.4-10.2); Carbon Dioxide 23 mmol/L (22-30); Creatinine 1 0.74 mg/dL (0.66-1.25); Glucose 401 mg/dL (74-106); SGOT/AST 52 U/L (17-59); SGPT/ALT 18 U/L (0-50); SODIUM 135 mmol/L (137-145); Total Protein 8.3 g/dL (6.3-8.2)
[2019-10-31] MEDS ORDERED: DUONEB 0.5-3 MG/3 ml Neb IH ONE ×2 (15:40)
[2019-10-31 16:23] VITALS: O2SAT 97
[2019-10-31 16:43] VITALS: BP 153/76; PULSE 86
== END 2019-10-31 16:43 | disposition home or self-care (01) ==
LOC: ED 13:20
DX: J40 Bronchitis, not specified as acute or chronic (principal); I10 Essential (primary) hypertension; E78.00 Pure hypercholesterolemia, unspecified; E11.9 Type 2 diabetes mellitus without complications; F32.9 Major depressive disorder, single episode, unspecified; Z79.899 Other long term (current) drug therapy
CPT/HCPCS: 36000; 36415; 71046; 80053; 84484; 85025; 87631; 93005; 93041; 94150; 94640; 94760; 99284; A9270-GY

== ENCOUNTER 2020-05-21 16:49 | Emergency (ER) | payer MEDICARE ==
[2020-05-21] MEDS ORDERED: Sodium Chloride 0.9% 1000 ML 1,000 ML IV SCH (17:15)
[2020-05-21] MEDS ORDERED: Sodium Chloride 0.9% 1000 ML 1,000 ML ONE (17:34)
[2020-05-21 17:58] LABS: Hematocrit 48.6 % (42-50); Hemoglobin 16.1 gm/dl (12.5-18.0); Mean Cell Volume 90.3 fl (78-100); Mean Corpuscular Hemoglobin 29.9 pg (26-32); Mean Corpuscular Hgb Concent. 33.1 g/dl (32-36); Mean Platelet Volume 9.6 fl (7.5-11.0); Platelet Count 178 K/mm3 (150-450); Red Blood Count 5.38 M/mm3 (4.1-5.6); Red Cell Distribution Width 12.7 % (11.5-14.0); White Blood Count 7.1 K/mm3 (4.0-10.5)
[2020-05-21 18:09] LABS: ALBUMIN 3.6 g/dL (3.5-5.0); ALKALINE PHOSPHATASE 75 U/L (38-126); ANION GAP 14.6 MEQ/L (5-15); BLOOD UREA NITROGEN 23 mg/dL (9-20); CHLORIDE 99 mmol/L (98-107); Calcium 8.8 mg/dL (8.4-10.2); Carbon Dioxide 25 mmol/L (22-30); Creatinine 1 0.93 mg/dL (0.66-1.25); Glucose 332 mg/dL (74-106); Potassium 4.3 mmol/L (3.5-5.1); SGOT/AST 30 U/L (17-59); SGPT/ALT 12 U/L (0-50); SODIUM 135 mmol/L (137-145); Total Protein 7.3 g/dL (6.3-8.2)
[2020-05-21 18:42] LABS: BAND 2 % (0.0-2.0); Basophil 1 % (0.0-1.0); Lymphocytes 8 % (24-44); Monocyte 4 % (0.0-12.0); Neutrophils 85 % (36.-66.); Platelet Estimate NORMAL (NORMAL); Total Cells Counted 100
--- NOTE | 2020-05-21 19:13 | ERPHSYRPT ---
- History of Present Illness Time Seen by Provider: 05/21/20 17:10 Source: patient Exam Limitations: no limitations Patient Subjective Stated Complaint: pt here for increase sob for unknown amount of time with weakness, pt is covid positive for a about a week now Triage Nursing Assessment: pt alert, lethergic at times,face mask in place, resp easy, chest with wheezes, no cough, abd soft. no edema. Physician History: Patient is a 74-year-old male presents to our ED via EMS medic 1 for evaluation of shortness of breath. Patient is COVID positive. Patient was diagnosed 1 week ago. Patient states that shortness of breath has been progressive since his diagnosis. Patient is a diabetic. He has been taking all of his medications as prescribed. He has been feeling very weak. Patient states that he has difficulty performing his ADLs. No chest pain. No nausea or vomiting. No rash. Patient was hypoxic upon arrival. Oxygen nasal cannula applied. Patient voiced no other complaints or concerns at this time. Timing/Duration: day(s) Severity: moderate Modifying Factors: Improves With: nothing Associated Symptoms: shortness of breath, malaise, weakness, No nausea, No vomiting, No chest pain, No headaches, No syncope, No seizure Allergies/Adverse Reactions: No Known Drug Allergies Allergy (Verified 05/21/20 17:15) Home Medications: Albuterol Sulfate [Proair Hfa] 2 puffs IH QID PRN 01/22/14 [History] Aspirin 81 mg PO DAILY 01/22/14 [History] Vitamin B Complex & Vit C No.3 [B Complex with Vitamin C] 1 each PO DAILY 01/22/14 [History] Nitroglycerin 0.4 mg Tablet [Nitrostat 0.4 MG Tablet] 0.4 mg SL UD PRN 05/20/15 [History] Ascorbic Acid [Vitamin C] 50 mg PO DAILY 02/13/18 [History] Citalopram Hydrobromide [Citalopram HBr] 40 mg PO DAILY 02/13/18 [History] Dulaglutide [Trulicity] 0.75 mg SQ WEEKLY 02/13/18 [History] Glipizide 10 mg [Glucotrol 10 MG] 10 mg PO DAILY 02/13/18 [History] Insulin Degludec [Tresiba Flextouch U-100] 20 units SQ QHS 02/13/18 [History] Lovastatin 40 mg PO DAILY 02/13/18 [History] Metformin HCl Xr 500 mg [Glucophage XR 500 MG] 500 mg PO DAILY 02/13/18 [History] Metoprolol Tartrate 25 mg [Lopressor 25MG Tab] 25 mg PO BID 02/13/18 [History] lisinopriL [Zestril] 5 mg PO DAILY 02/13/18 [History] Hx Tetanus, Diphtheria Vaccination/Date Given: No Hx Influenza Vaccination/Date Given: Yes Hx Pneumococcal Vaccination/Date Given: No Immunizations Up to Date: Yes Travel Risk - International Travel Have you traveled outside of the country in past 3 weeks: No - Coronavirus Screening Are you exhibiting any of the following symptoms?: Yes Symptoms: Cough: New Onset, Shortness of Breath, Headaches/Body Aches/Fatigue Close contact with a COVID-19 positive Pt in past 14-21 Days: Yes - Review of Systems Constitutional: No Symptoms, No Fever, No Chills Eyes: No Symptoms Ears, Nose, & Throat: No Symptoms Respiratory: No Symptoms, No Cough, No Dyspnea Cardiac: No Symptoms, No Chest Pain, No Edema, No Syncope Abdominal/Gastrointestinal: No Symptoms, No Abdominal Pain, No Nausea, No Vomiting, No Diarrhea Genitourinary Symptoms: No Symptoms, No Dysuria Musculoskeletal: No Symptoms, No Back Pain, No Neck Pain Skin: No Symptoms, No Rash Neurological: No Dizziness, No Focal Weakness, No Sensory Changes Psychological: No Symptoms Endocrine: No Symptoms Hematologic/Lymphatic: No Symptoms Immunological/Allergic: No Symptoms All Other Systems: Reviewed and Negative - Past Medical History Pertinent Past Medical History: Yes Neurological History: No Pertinent History ENT History: Cataracts Cardiac History: High Cholesterol, Hypertension Respiratory History: Asthma Endocrine Medical History: Diabetes Type II Musculoskeletal History: Arthritis GI Medical History: GERD, Gallbladder Disease History: No Pertinent History Psycho-Social History: Depression, Anxiety, Panic Disorder Male Reproductive Disorders: No Pertinent History - Past Surgical History Past Surgical History: Yes Neuro Surgical History: No Pertinent History Cardiac: Cardiac Stent, Cardiac Catheterization Respiratory: No Pertinent History Gastrointestinal: Appendectomy, Cholecystectomy, Hernia Repair Genitourinary: No Pertinent History Musculoskeletal: No Pertinent History Male Surgical History: No Pertinent History Other Surgical History: cataract removed from both eye - Social History Smoking Status: Never smoker Exposure to second hand smoke: No Alcohol Use: None Drug Use: none Patient Lives Alone: No Significant Family History: heart disease, diabetes, hypertension - Nursing Vital Signs Nursing Vital Signs: Initial Vital Signs Temperature 98.8 F 05/21/20 17:03 Pulse Rate 92 H 05/21/20 17:03 Respiratory Rate 22 05/21/20 17:03 Blood Pressure 170/80 05/21/20 17:03 O2 Sat by Pulse Oximetry 95 05/21/20 17:03 Pain Scale Pain Intensity 4 - Physical Exam General Appearance: alert, other (Patient is lying in bed. He appears sleepy. However patient answering questions appropriately.) Eye Exam: PERRL/EOMI, eyes nml inspection Ears, Nose, Throat Exam: normal ENT inspection, TMs normal, pharynx normal, moist mucous membranes Neck Exam: normal inspection, non-tender, supple, full range of motion Respiratory Exam: airway intact, wheezing, No respiratory distress, No crackles/rales, No rhonchi, No stridor Cardiovascular Exam: regular rate/rhythm, normal heart sounds, normal peripheral pulses Gastrointestinal/Abdomen Exam: soft, normal bowel sounds, No tenderness, No distention, No mass, No guarding Back Exam: normal inspection, normal range of motion, No CVA tenderness, No vertebral tenderness Extremity Exam: normal inspection, normal range of motion Neurologic Exam: alert, oriented x 3, cooperative, normal mood/affect, nml cerebellar function, nml station & gait, sensation nml, No motor deficits Skin Exam: normal color, warm, dry, No rash Lymphatic Exam: No adenopathy SpO2 Interpretation: normal SpO2: 96 O2 Delivery: Nasal Cannula (96% on 6 L nasal cannula. Patient requires oxygen at home. He is not sure how many liters however.) - Course Nursing assessment & vital signs reviewed: Yes EKG Interpreted by Me: RATE (86), Sinus Rhythm, NORMAL AXIS, NORMAL INTERVALS - Radiology Exams Chest X-ray Interpretation: Interpreted by me (Left pleural effusion, bilateral infiltrates and atelectasis. Normal bony thorax sternotomy wires intact.) Ordered Tests: Active Orders 24 hr Category Date Time Status Group Product Manager STAT Care 05/21/20 17:08 Active EKG-ER Only STAT Care 05/21/20 17:07 Active IV Insertion STAT Care 05/21/20 17:07 Active Pulse Oximetry (ED) STAT Care 05/21/20 17:07 Active CHEST 1 VIEW (PORTABLE) Stat Exams 05/21/20 17:08 Taken CBC W DIFF Stat Lab 05/21/20 17:57 Completed CMP Stat Lab 05/21/20 17:57 Completed Lactic Acid Stat Lab 05/21/20 17:50 Completed Manual Differential NC Stat Lab 05/21/20 17:57 Completed TROPONIN Q3H Lab 05/21/20 17:57 Completed TROPONIN Q3H Lab 05/21/20 20:15 Ordered TROPONIN Q3H Lab 05/21/20 23:15 Ordered TROPONIN Q3H Lab 05/22/20 02:15 Ordered TROPONIN Q3H Lab 05/22/20 05:15 Ordered Transfer Order Routine Transfer 05/21/20 Ordered Medication Summary Generic Name Dose Route Start Last Admin Trade Name Freq PRN Reason Stop Dose Admin Sodium Chloride 1,000 mls @ 50 mls/hr 05/21/20 17:15 05/21/20 17:35 Sodium Chloride 0.9% 1000 Ml IV 06/20/20 17:14 50 mls/hr .Q20H TREVER Administration Lab/Rad Data: Laboratory Result Diagrams 05/21/20 17:57 05/21/20 17:57 Laboratory Results 05/21/20 05/21/20 05/21/20 Range/Units 17:57 17:57 17:57 WBC 7.1 (4.0-10.5) K/mm3 RBC 5.38 (4.1-5.6) M/mm3 Hgb 16.1 (12.5-18.0) gm/dl Hct 48.6 (42-50) % MCV 90.3 (78-100) fl MCH 29.9 (26-32) pg MCHC 33.1 (32-36) g/dl RDW 12.7 (11.5-14.0) % Plt Count 178 (150-450) K/mm3 MPV 9.6 (7.5-11.0) fl Segmented Neutrophils 85 H (36.-66.) % Band Neutrophils 2 (0.0-2.0) % Lymphocytes (Manual) 8 L (24-44) % Monocytes (Manual) 4 (0.0-12.0) % Basophils (Manual) 1 (0.0-1.0) % Platelet Estimate NORMAL (NORMAL) RBC Morphology NORMAL Sodium 135 L (137-145) mmol/L Potassium 4.3 (3.5-5.1) mmol/L Chloride 99 (98-107) mmol/L Carbon Dioxide 25 (22-30) mmol/L Anion Gap 14.6 (5-15) MEQ/L BUN 23 H (9-20) mg/dL Creatinine 0.93 (0.66-1.25) mg/dL Estimated GFR > 60.0 ML/MIN Glucose 332 H (74-106) mg/dL Lactic Acid (0.4-2.0) Calcium 8.8 (8.4-10.2) mg/dL Total Bilirubin 1.00 (0.2-1.3) mg/dL AST 30 (17-59) U/L ALT 12 (0-50) U/L Alkaline Phosphatase 75 (38-126) U/L Troponin I < 0.012 (0.000-0.034) ng/mL Serum Total Protein 7.3 (6.3-8.2) g/dL Albumin 3.6 (3.5-5.0) g/dL 05/21/20 Range/Units 17:50 WBC (4.0-10.5) K/mm3 RBC (4.1-5.6) M/mm3 Hgb (12.5-18.0) gm/dl Hct (42-50) % MCV (78-100) fl MCH (26-32) pg MCHC (32-36) g/dl RDW (11.5-14.0) % Plt Count (150-450) K/mm3 MPV (7.5-11.0) fl Segmented Neutrophils (36.-66.) % Band Neutrophils (0.0-2.0) % Lymphocytes (Manual) (24-44) % Monocytes (Manual) (0.0-12.0) % Basophils (Manual) (0.0-1.0) % Platelet Estimate (NORMAL) RBC Morphology Sodium (137-145) mmol/L Potassium (3.5-5.1) mmol/L Chloride (98-107) mmol/L Carbon Dioxide (22-30) mmol/L Anion Gap (5-15) MEQ/L BUN (9-20) mg/dL Creatinine (0.66-1.25) mg/dL Estimated GFR ML/MIN Glucose (74-106) mg/dL Lactic Acid 1.7 (0.4-2.0) Calcium (8.4-10.2) mg/dL Total Bilirubin (0.2-1.3) mg/dL AST (17-59) U/L ALT (0-50) U/L Alkaline Phosphatase (38-126) U/L Troponin I (0.000-0.034) ng/mL Serum Total Protein (6.3-8.2) g/dL Albumin (3.5-5.0) g/dL - Progress Progress: improved Progress Note: 05/21/20 19:[address] Jameson who accepts admission to observation. Plan of care discussed with patient. He agrees to admission to [facility] for further evaluation and treatment. Counseled pt/family regarding: lab results, diagnosis, rad results - Departure Departure Disposition: Observation Clinical Impression: COVID-19, Dehydration, Hyperglycemia, Generalized weakness, Pneumonia, Hypoxia Condition: Stable Critical Care Time: No Referrals: MARIBEL YODER MD [Primary Care Provider] -
[2020-05-21 21:15] VITALS: BP 174/79; PULSE 84; O2SAT 95
--- NOTE | 2020-05-22 08:36 | XRAY ---
Indication: Short of breath. Comparison: October 31, 2019. Portable chest demonstrates new bilateral mid to lower lung infiltrates/atelectasis with stable azygos lobe and left base pleural thickening. Heart is not enlarged again with CABG surgery. Bony thorax intact again with mild osteopenia and degenerative changes.
== END 2020-05-21 21:10 | disposition short-term general hospital (02) ==
LOC: ED 16:49
DX: U07.1 COVID-19 (principal); E86.0 Dehydration; R73.9 Hyperglycemia, unspecified; R53.1 Weakness; J18.9 Pneumonia, unspecified organism; R09.02 Hypoxemia; Z79.899 Other long term (current) drug therapy; E78.00 Pure hypercholesterolemia, unspecified; I10 Essential (primary) hypertension; E11.9 Type 2 diabetes mellitus without complications
CPT/HCPCS: 36000; 36415; 71045; 80053; 83605; 84484; 85025; 93005; 93041; 94760; 96360; 96361; 99285; 99291; 99292

== ENCOUNTER 2023-02-21 08:28 | Emergency (ER) | payer MEDICARE ==
--- NOTE | 2023-02-21 09:20 | ERPHSYRPT ---
- History of Present Illness Time Seen by Provider: 02/21/23 09:18 Source: patient Exam Limitations: no limitations Patient Subjective Stated Complaint: PT HERE FOR A FALL TODAY, LOST BALANCE, WAS ABLE TO GET SELF UP, CO PAIN TO RIGHT HIP WHILE BEARING WT, EMS STATES HE WAS ABLE TO WALK TO COT Triage Nursing Assessment: PT ARRIVED PER AMBULNACE, ALERT, RESP EASY, SKIN W/D/P. NO SWELLING NOTED Physician History: Patient 77-year-old male presents to our ED by EMS with his for evaluation of a fall. Patient states he was walking when he fell. The fall was mechanical however patient states that he felt a little dizzy. No associated chest pain or shortness of breath. No nausea vomiting or diaphoresis. No numbness tingling or weakness. Patient complains of right hip pain. Pain worse with weightbearing. Pain improved with rest. It is unclear whether or not patient experienced blunt head trauma. No physical signs of head injury. However patient's is requesting a CT scan of his head. Patient resting comfortably. He voices no other complaints or concerns at this time. Portions of this note were created with voice recognition technology. There may be grammatical, spelling, punctuation or sound alike errors Timing/Duration: today Severity: moderate Modifying Factors: Improves With: nothing Associated Symptoms: other (Dizziness) Allergies/Adverse Reactions: No Known Drug Allergies Allergy (Verified 02/21/23 08:31) Home Medications: Albuterol Sulfate [Proair Hfa] 2 puffs IH QID PRN 01/22/14 [History] Aspirin 81 mg PO DAILY 01/22/14 [History] Vitamin B Complex & Vit C No.3 [B Complex with Vitamin C] 1 each PO DAILY 01/22/14 [History] Nitroglycerin 0.4 mg Tablet [Nitrostat 0.4 MG Tablet] 0.4 mg SL UD PRN 05/20/15 [History] Ascorbic Acid [Vitamin C] 50 mg PO DAILY 02/13/18 [History] Citalopram Hydrobromide [Citalopram HBr] 40 mg PO DAILY 02/13/18 [History] Dulaglutide [Trulicity] 0.75 mg SQ WEEKLY 02/13/18 [History] Insulin Degludec [Tresiba Flextouch U-100] 20 units SQ QHS 02/13/18 [History] Lovastatin 40 mg PO DAILY 02/13/18 [History] Metoprolol Tartrate 25 mg [Lopressor 25MG Tab] 25 mg PO BID 02/13/18 [History] lisinopriL [Zestril] 5 mg PO DAILY 02/13/18 [History] Hx Tetanus, Diphtheria Vaccination/Date Given: No Hx Influenza Vaccination/Date Given: Yes Hx Pneumococcal Vaccination/Date Given: No Immunizations Up to Date: Yes Travel Risk - International Travel Have you traveled outside of the country in past 3 weeks: No - Coronavirus Screening Are you exhibiting any of the following symptoms?: No Close contact with a COVID-19 positive Pt in past 14-21 Days: No - Vaccine Status Have you recieved a Covid-19 vaccination: Yes [employer]: Unknown - Vaccination Dates Date of 2cond Vaccination (if applicable): ? Dates if Unknown: ? - Review of Systems Constitutional: No Symptoms, No Fever, No Chills Eyes: No Symptoms Ears, Nose, & Throat: No Symptoms Respiratory: No Symptoms, No Cough, No Dyspnea Cardiac: No Symptoms, No Chest Pain, No Edema, No Syncope Abdominal/Gastrointestinal: No Symptoms, No Abdominal Pain, No Nausea, No Vomiting, No Diarrhea Genitourinary Symptoms: No Symptoms, No Dysuria Musculoskeletal: No Symptoms, No Back Pain, No Neck Pain Skin: No Symptoms, No Rash Neurological: No Symptoms, No Dizziness, No Focal Weakness, No Sensory Changes Psychological: No Symptoms Endocrine: No Symptoms Hematologic/Lymphatic: No Symptoms Immunological/Allergic: No Symptoms All Other Systems: Reviewed and Negative - Past Medical History Pertinent Past Medical History: Yes Neurological History: No Pertinent History ENT History: Cataracts Cardiac History: High Cholesterol, Hypertension Respiratory History: Asthma Endocrine Medical History: Diabetes Type II Musculoskeletal History: Arthritis GI Medical History: GERD History: No Pertinent History Psycho-Social History: Depression, Anxiety, Panic Disorder Male Reproductive Disorders: No Pertinent History - Past Surgical History Past Surgical History: Yes Neuro Surgical History: No Pertinent History Cardiac: Cardiac Stent, Cardiac Catheterization Respiratory: No Pertinent History Gastrointestinal: Appendectomy, Cholecystectomy, Hernia Repair Genitourinary: No Pertinent History Musculoskeletal: No Pertinent History Male Surgical History: No Pertinent History Other Surgical History: cataract removed from both eye - Social History Smoking Status: Former smoker Exposure to second hand smoke: No Alcohol Use: None Drug Use: none Patient Lives Alone: No Significant Family History: heart disease, diabetes, hypertension - Nursing Vital Signs Nursing Vital Signs: Initial Vital Signs Temperature 97.0 F 02/21/23 08:31 Pulse Rate 82 02/21/23 08:31 Respiratory Rate 18 02/21/23 08:31 Blood Pressure 97/62 02/21/23 08:31 O2 Sat by Pulse Oximetry 90 L 02/21/23 08:31 Pain Scale Pain Intensity 0 - Physical Exam General Appearance: no apparent distress, alert Eye Exam: PERRL/EOMI, eyes nml inspection Ears, Nose, Throat Exam: normal ENT inspection, TMs normal, pharynx normal, moist mucous membranes Neck Exam: normal inspection, non-tender, supple, full range of motion Respiratory Exam: normal breath sounds, lungs clear, airway intact, No respiratory distress Cardiovascular Exam: regular rate/rhythm, normal heart sounds, normal peripheral pulses Gastrointestinal/Abdomen Exam: soft, normal bowel sounds, No tenderness, No mass Back Exam: normal inspection, normal range of motion, No CVA tenderness, No vertebral tenderness Extremity Exam: normal inspection, normal range of motion, pelvis stable Neurologic Exam: alert, oriented x 3, cooperative, normal mood/affect, nml cerebellar function, nml station & gait, sensation nml, No motor deficits Skin Exam: normal color, warm, dry, No rash Lymphatic Exam: No adenopathy SpO2 Interpretation: normal SpO2: 95 O2 Delivery: Room Air - Course Nursing assessment & vital signs reviewed: Yes - CT Exams Head CT Interpretation: Tele-radiologist Report (Nonacute senile brain. Remote lacunar infarct. Paranasal sinus disease) Lower Extremity CT Interpretation: Tele-radiologist Report (Nondisplaced nonangulated femoral neck fracture. Fecal stasis. Degenerative changes of hip.) Ordered Tests: Active Orders 24 hr Category Date Time Status Inspector Plug Seam STAT Care 02/21/23 09:08 Completed EKG-ER Only STAT Care 02/21/23 09:08 Completed IV Insertion STAT Care 02/21/23 09:08 Completed Pulse Oximetry (ED) STAT Care 02/21/23 09:08 Completed HEAD WITHOUT CONTRAST [CT] Stat Exams 02/21/23 09:10 Completed LOWER EXTREMITY WO CONTRAST [CT] Stat Exams 02/21/23 09:10 Completed CBC W DIFF Stat Lab 02/21/23 09:20 Completed CMP Stat Lab 02/21/23 09:20 Completed NT PRO BNPII Stat Lab 02/21/23 09:20 Completed TROPONIN Q4H Lab 02/21/23 09:20 Completed Lab/Rad Data: Laboratory Result Diagrams 02/21/23 09:20 02/21/23 09:20 Laboratory Results 02/21/23 02/21/23 02/21/23 Range/Units 09:20 09:20 09:20 WBC 11.6 H (4.0-10.5) x10^3/uL RBC 5.12 (4.1-5.6) x10^6/uL Hgb 15.6 (12.5-18.0) g/dL Hct 47.3 (42-50) % MCV 92.4 (78-100) fL MCH 30.5 (26-32) pg MCHC 33.0 (32-36) g/dL RDW 12.2 (11.5-14.0) % Plt Count 215 (150-450) x10^3/uL MPV 9.1 (7.5-11.0) fL Gran % 82.5 H (36.0-66.0) % Immature Gran % (Auto) 0.5 H (0.00-0.4) % Nucleat RBC Rel Count 0.0 (0.00-0.1) % Eos # (Auto) 0.16 (0-0.5) x10^3/uL Immature Gran # (Auto) 0.06 H (0.00-0.03) x10^3u/L Absolute Lymphs (auto) 1.27 (1.0-4.6) x10^3/uL Absolute Monos (auto) 0.49 (0.0-1.3) x10^3/uL Absolute Nucleated RBC 0.00 (0.00-0.01) x10^3u/L Lymphocytes % 11.0 L (24.0-44.0) % Monocytes % 4.2 (0.0-12.0) % Eosinophils % 1.4 (0.00-5.0) % Basophils % 0.4 (0.0-0.4) % Absolute Granulocytes 9.54 H (1.4-6.9) x10^3/uL Basophils # 0.05 (0-0.4) x10^3/uL Sodium 139 (137-145) mmol/L Potassium 4.4 (3.5-5.1) mmol/L Chloride 101 (98-107) mmol/L Carbon Dioxide 27 (22-30) mmol/L Anion Gap 15.1 H (5-15) MEQ/L BUN 33 H (9-20) mg/dL Creatinine 1.01 (0.66-1.25) mg/dL Estimated GFR > 60.0 ML/MIN Glucose 197 H (74-106) mg/dL Calcium 9.3 (8.4-10.2) mg/dL Total Bilirubin 0.60 (0.2-1.3) mg/dL AST 28 (17-59) U/L ALT 17 (0-50) U/L Alkaline Phosphatase 81 (38-126) U/L Troponin I < 0.012 (0.000-0.034) ng/mL NT-Pro-B Natriuret Pep 126 (<300) pg/mL Serum Total Protein 8.0 (6.3-8.2) g/dL Albumin 4.2 (3.5-5.0) g/dL - Progress Progress: improved Progress Note: Case discussed with Dr. Ibrahim ER physician at [facility] who accepts admission to observation. 02/21/23 11:38 77-year-old male presents to our ED for evaluation of hip pain that is post fall. EKG normal sinus rhythm. CT head negative. CT right hip reveals a femoral neck fracture. CBC CMP BNP and troponin within normal limits. Complexity of problem addressed is moderate new acute with an uncertain prognosis. Critical care time Complexity of data reviewed and analyzed is moderate. Test ordered. Test reviewed and analyzed by Dr. Rudolph including CT scan head. Risk of complication and or risk of morbidity/mortality of patient management is high. Patient will require hospitalization for further evaluation and treatment. Patient transferred to [facility] for further evaluation and treatment. Vital stable. Portions of this note were created with voice recognition technology. There may be grammatical, spelling, punctuation or sound alike errors 02/22/23 02:55 Discussed with : Other Will see patient in: other Counseled pt/family regarding: lab results, diagnosis, rad results - Departure Departure Disposition: Transfer Clinical Impression: Fall, Hip fracture Condition: Stable Critical Care Time: No Referrals: BEBA,MARIBEL, MD [Primary Care Provider] - Follow up/PCP as directed
[2023-02-21 09:24] LABS: Absolute Neutrophil Ct (ANC) 9.54 x10^3/uL (1.4-6.9); BASOPHIL % 0.4 % (0.0-0.4); Basophil (Absolute #) 0.05 x10^3/uL (0-0.4); Eosinophil % 1.4 % (0.00-5.0); Eosinophil (Absolute #) 0.16 x10^3/uL (0-0.5); Hematocrit 47.3 % (42-50); Hemoglobin 15.6 g/dL (12.5-18.0); IMMATURE GRAN # 0.06 x10^3u/L (0.00-0.03); IMMATURE GRAN % 0.5 % (0.00-0.4); Lymphocyte (Absolute #) 1.27 x10^3/uL (1.0-4.6); Mean Cell Volume 92.4 fL (78-100); Mean Corpuscular Hemoglobin 30.5 pg (26-32); Mean Platelet Volume 9.1 fL (7.5-11.0); Monocyte (Absolute #) 0.49 x10^3/uL (0.0-1.3); Monocytes % 4.2 % (0.0-12.0); Neutrophil % 82.5 % (36.0-66.0); Platelet Count 215 x10^3/uL (150-450); Red Blood Count 5.12 x10^6/uL (4.1-5.6); Red Cell Distribution Width 12.2 % (11.5-14.0); White Blood Count 11.6 x10^3/uL (4.0-10.5)
[2023-02-21 09:55] LABS: ALBUMIN 4.2 g/dL (3.5-5.0); ALKALINE PHOSPHATASE 81 U/L (38-126); ANION GAP 15.1 MEQ/L (5-15); BLOOD UREA NITROGEN 33 mg/dL (9-20); CHLORIDE 101 mmol/L (98-107); Calcium 9.3 mg/dL (8.4-10.2); Carbon Dioxide 27 mmol/L (22-30); Creatinine 1 1.01 mg/dL (0.66-1.25); EST GLOMERULAR FILTRATION RATE > 60.0 ML/MIN; Glucose 197 mg/dL (74-106); NT PRO BNPII 126 pg/mL (<300); Potassium 4.4 mmol/L (3.5-5.1); SGOT/AST 28 U/L (17-59); SGPT/ALT 17 U/L (0-50); SODIUM 139 mmol/L (137-145)
--- NOTE | 2023-02-21 10:30 | XRAY ---
Indication: Dizziness. Status post fall. Multiple contiguous axial images obtained through the head without contrast. Comparison: May 19, 2015 Again age-appropriate global atrophy, mild periventricular degenerative micro-ischemia bilaterally, and remote lacunar infarct left basal ganglia. New tiny remote lacunar infarct anterior limb right internal capsule. No acute intracranial hemorrhage, abnormal extra-axial fluid collection, or mass effect. Fourth ventricle is midline without hydrocephalus. Bony calvarium intact. Again moderate mucosal thickening both ethmoid sinuses with new near complete opacification left maxillary sinus. Mastoid air cells are clear. Impression: Nonacute senile brain with remote lacunar infarcts as detailed. Worsening paranasal sinus disease.
--- NOTE | 2023-02-21 10:36 | XRAY ---
Indication: Pain. Fracture. Multiple contiguous axial images obtained through the right hip. Sagittal and coronal reformatted images obtained. Comparison: CT abdomen/pelvis January 21, 2009. Osseous structures demineralized with tiny spurring superior acetabulum. New nondisplaced nonangulated femur neck fracture. Stable incidental tiny femur head bone island. Right hip articulation appears intact without large effusion. Mild scattered arteriosclerotic calcifications. Remaining visualized noncontrasted soft tissues unremarkable. Visualized pelvis demonstrates moderate colonic fecal stasis including mild rectal impaction. Impression: 1. New nondisplaced femur neck fracture. 2. New colonic fecal stasis with rectal impaction. 3. Chronic findings including degenerative acetabular spurring, femur head bone island, and arteriosclerotic disease.
[2023-02-21 12:45] VITALS: BP 135/68
[2023-02-21 12:46] VITALS: PULSE 72
[2023-02-22 03:00] VITALS: O2SAT 95
== END 2023-02-21 12:47 | disposition short-term general hospital (02) ==
LOC: ED 08:28
DX: S72.001A Fracture of unspecified part of neck of right femur, initial encounter for closed fracture (principal); W19.XXXA Unspecified fall, initial encounter; Y93.01 Activity, walking, marching and hiking; R42 Dizziness and giddiness; E78.5 Hyperlipidemia, unspecified; I10 Essential (primary) hypertension; E11.9 Type 2 diabetes mellitus without complications; Z79.85 Long-term (current) use of injectable non-insulin antidiabetic drugs; Z79.899 Other long term (current) drug therapy
CPT/HCPCS: 36000; 36415; 70450; 73700; 80053; 83880; 84484; 85025; 93005; 93041; 94760; 99285

== ENCOUNTER 2023-07-21 15:25 | Emergency (ER) | payer MEDICARE ==
[2023-07-21 16:04] VITALS: BP 140/62; PULSE 69; TEMP 96.8; O2SAT 100
--- NOTE | 2023-07-21 16:16 | ERPHSYRPT ---
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 He did not lose consciousness. He is a little nauseated. Independent, additional medical hist ory was obtained from the paramedics. Patient has a history of hypertension, diabetes, hyperlipidemia, asthma, gastroesophageal reflux disease, panic disorder and coronary artery disease having had a cardiac stent placed in the past. He denies chest pain. He denies shortness of breath. Occurred: just prior to arrival Severity: mild Head Injury Location: occipital Loss of Consciousness: no loss of consciousness Associated Symptoms: nausea, No vomiting, No shortness of breath, No chest pain Allergies/Adverse Reactions: No Known Drug Allergies Allergy (Verified 07/21/23 16:04) Home Medications: Albuterol Sulfate [Proair Hfa] 2 puffs IH QID PRN 01/22/14 [History] Aspirin 81 mg PO DAILY 01/22/14 [History] Vitamin B Complex & Vit C No.3 [B Complex with Vitamin C] 1 each PO DAILY 01/22/14 [History] Nitroglycerin 0.4 mg Tablet [Nitrostat 0.4 MG Tablet] 0.4 mg SL UD PRN 05/20/15 [History] Ascorbic Acid [Vitamin C] 50 mg PO DAILY 02/13/18 [History] Citalopram Hydrobromide [Citalopram HBr] 40 mg PO DAILY 02/13/18 [History] Dulaglutide [Trulicity] 0.75 mg SQ WEEKLY 02/13/18 [History] Insulin Degludec [Tresiba Flextouch U-100] 20 units SQ QHS 05/08/18 [History] Lovastatin 40 mg PO DAILY 02/13/18 [History] Metoprolol Tartrate 25 mg [Lopressor 25MG Tab] 25 mg PO BID 02/13/18 [History] lisinopriL [Zestril] 5 mg PO DAILY 02/13/18 [History] Hx Tetanus, Diphtheria Vaccination/Date Given: No Hx Influenza Vaccination/Date Given: Yes Hx Pneumococcal Vaccination/Date Given: No Travel Risk - International Travel Have you traveled outside of the country in past 3 weeks: No - Coronavirus Screening Are you exhibiting any of the following symptoms?: No Close contact with a COVID-19 positive Pt in past 14-21 Days: No - Vaccine Status Have you recieved a Covid-19 vaccination: Yes 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 Dates if Unknown: ? - Review of Systems Constitutional: No Symptoms Eyes: No Symptoms Ears, Nose, & Throat: No Symptoms Respiratory: No Symptoms Cardiac: No Symptoms Abdominal/Gastrointestinal: No Symptoms Genitourinary Symptoms: No Symptoms Musculoskeletal: No Symptoms Skin: Other (Subcutaneous hematoma occipital region of head) Neurological: No Symptoms Psychological: No Symptoms Endocrine: No Symptoms Hematologic/Lymphatic: No Symptoms Immunological/Allergic: No Symptoms All Other Systems: Reviewed and Negative - Past Medical History Pertinent Past Medical History: Yes Neurological History: No Pertinent History ENT History: Cataracts Cardiac History: High Cholesterol, Hypertension Respiratory History: Asthma Endocrine Medical History: Diabetes Type II Musculoskeletal History: Arthritis GI Medical History: GERD History: No Pertinent History Psycho-Social History: Depression, Anxiety, Panic Disorder Male Reproductive Disorders: No Pertinent History - Past Surgical History Past Surgical History: Yes Neuro Surgical History: No Pertinent History Cardiac: Cardiac Stent, Cardiac Catheterization Respiratory: No Pertinent History Gastrointestinal: Appendectomy, Cholecystectomy, Hernia Repair Genitourinary: No Pertinent History Musculoskeletal: No Pertinent History Male Surgical History: No Pertinent History Other Surgical History: cataract removed from both eye - Social History Smoking Status: Former smoker Exposure to second hand smoke: No Alcohol Use: None Drug Use: none Patient Lives Alone: No Significant Family History: heart disease, diabetes, hypertension - Nursing Vital Signs Nursing Vital Signs: Initial Vital Signs Temperature 96.8 F 07/21/23 15:51 Pulse Rate 69 07/21/23 15:51 Blood Pressure 140/62 07/21/23 15:51 O2 Sat by Pulse Oximetry 100 10/13/23 15:51 Pain Scale Pain Intensity 0 - [place] Coma Score Best Eye Response ([place]): (4) open spontaneously Best Verbal Response ([place]): (5) oriented Best Motor Response ([place]): (6) obeys commands [place] Total: 15 - Physical Exam General Appearance: no apparent distress, alert, anxiety Head Injury: swelling (Contusion with subcutaneous hematoma occipital region scalp) Eye Exam: bilateral eye: normal inspection, PERRL, EOMI ENT Exam: airway nml, nml ext.inspection, No evidence of ENT injury, No dental injury Neck Exam: c-collar in place Cardiovascular/Respiratory Exam: chest non-tender, no respiratory distress Gastrointestinal/Abdominal Exam: non tender Rectal Exam: not done Back Exam: normal inspection, normal range of motion, No CVA tenderness, No vertebral tenderness Extremity Exam: non-tender, normal range of motion, normal inspection Mental Status Exam: alert, oriented 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: normal hearing, normal speech, PERRL Skin Exam: normal color, warm, dry Lymphatic Exam: No adenopathy SpO2 Interpretation: normal SpO2: 100 O2 Delivery: Room Air - Course Nursing assessment & vital signs reviewed: Yes Ordered Tests: Active Orders 24 hr Category Date Time Status CERVICAL SPINE WO CONTRAST [CT] Stat Exams 07/21/23 15:28 Taken HEAD WITHOUT CONTRAST [CT] Stat Exams 07/21/23 15:27 Taken Medication Summary Discontinued Medications Generic Name Dose Route Start Last Admin Trade Name Freq PRN Reason Stop Dose Admin Ondansetron HCl 4 mg 07/21/23 16:35 Zofran 4 Mg/Udtablet Orally Disintegrating PO 07/21/23 16:36 STAT ONE - Progress Progress: unchanged Progress Note: 07/21/23 16:40 This patient's medical issue is 1 of low to moderate complexity. The level of complexity in the work-up performed is based on review of the patient's past medical history, review the patient's medication list, review of the patient's drug allergy list, history of present illness and physical findings on examination. Patient does not require any laboratory studies. Patient will undergo CT scan of the head and neck. We also provide the patient with 4 mg of ODT Zofran. 07/21/23 16:[address] scan of the head was interpreted by the radiologist and I reviewed the impression. There is no evidence of any acute intracranial abnormality. CT scan of cervical spine without contrast was interpreted by the radiologist and I reviewed the impression. There is no evidence of any acute fracture or subluxation. Counseled pt/family regarding: diagnosis, need for follow-up, rad results Medical Desision Making - Independent Historian Additional History obtained from: EMS - Diagnostic Testing Diagnostic test were ordered, analyzed, and reviewed by me: Yes Radiological Interpretation: Reviewed by me, Teleradiologist Report - Risk of complications Low Risk: Low risk of morbidity from additional dx testing or treatment - Departure Departure Disposition: Home Clinical Impression: Fall with no significant injury, Scalp hematoma Condition: Stable Critical Care Time: No Referrals: MARIBEL YODER MD [Primary Care Provider] - Follow up/PCP as directed Additional Instructions: Ice pack to scalp 3 times a day for the next 48 hours. Hold your blood thinning medication for 48 hours then restart. Take your other medications as prescribed. Use Tylenol for pain control
[2023-07-21] MEDS ORDERED: ZOFRAN ODT 4 MG PO ONE (16:35)
[2023-07-21] MEDS ORDERED: ZOFRAN ODT 4 MG ONE (16:39)
--- NOTE | 2023-07-21 23:03 | XRAY ---
Indication: Posterior head injury following fall. Multiple contiguous axial images obtained through the head without contrast. Comparison: February 21, 2023 Again age-appropriate global atrophy, mild periventricular degenerative micro-ischemia bilaterally and remote nuclear infarct left basal ganglia. No acute intracranial hemorrhage, abnormal extra-axial fluid collection, or mass effect. Fourth ventricle is midline without hydrocephalus. Bony calvarium intact. Mild mucosal thickening both ethmoid and both maxillary sinuses. Mastoid air cells are clear. 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 Again incidental paranasal sinus disease.
--- NOTE | 2023-07-21 23:05 | XRAY ---
Indication: Posterior head injury following fall. Multiple contiguous axial images obtained through the cervical spine. Sagittal and coronal reformatted images obtained. Comparison: None Osseous structures demineralized. Axial images negative for acute fracture, suspicious bony lesions, or spinal canal stenosis. Mild broad-based C5-C6 disc bulge. Mild/moderate multilevel degenerative facet hypertrophy, left greater than right. Sagittal and coronal reformatted images demonstrates normal alignment. Minimal C5-C6 disc space narrowing. No acute compression fracture, subluxation, or jump facet. Normal appearing craniocervical junction. Visualized noncontrasted soft tissues demonstrates minimal bilateral chronic calcifications. Lung apices demonstrates incidental right azygos lobe. Impression: 1. Negative for acute fracture/subluxation. 2. Osteopenia and multilevel degenerative changes.
== END 2023-07-21 17:15 | disposition home or self-care (01) ==
LOC: ED 15:25
DX: S00.03XA Contusion of scalp, initial encounter (principal); W18.39XA Other fall on same level, initial encounter; Y92.524 Gas station as the place of occurrence of the external cause; R11.0 Nausea; I10 Essential (primary) hypertension; E11.9 Type 2 diabetes mellitus without complications; E78.5 Hyperlipidemia, unspecified; Z79.85 Long-term (current) use of injectable non-insulin antidiabetic drugs; Z79.4 Long term (current) use of insulin; Z79.899 Other long term (current) drug therapy
CPT/HCPCS: 70450; 72125; 99283; Q0162